=== PATIENT | female | born 1970 | race Caucasian/White ===

== ENCOUNTER 2017-09-10 15:08 | Emergency (ER) | payer SELFPAY ==
[2017-09-10 15:55] LABS: Hematocrit 39.1 % (37.0-47.0); Hemoglobin 12.2 gm/dL (12.5-16.0); Mean Cell Volume 91.8 fl (78-100); Mean Corpuscular Hemoglobin 28.6 pg (27-31); Mean Corpuscular Hgb Conc 31.2 g/dl (32-36); Mean Platelet Volume 9.8 fl (6.0-9.5); Neutrophil # 4.5 K/mm3 (1.3-6.0); Neutrophil % 54.9 % (42-75.0); Platelet Count 308 K/mm3 (150-450); Red Blood Count 4.26 M/mm3 (4.2-5.4); Red Cell Distribution Width 13.2 % (11.5-14.0); White Blood Count 8.2 K/mm3 (4.0-10.5)
--- NOTE | 2017-09-10 16:06 | ERNOTE ---
Abdominal HPI - General Chief Complaint: Abdominal Pain Time Seen by Provider: 09/10/17 15:49 Source: patient Exam Limitations: no limitations - Immun/Allergies/Home Medications Immunizatons: IMMUNIZATION HX Immunizations Up to Date Yes Allergies/Adverse Reactions: Allergies prochlorperazine edisylate [From Compazine] Allergy (Unknown, Verified 09/10/17 15:26) prochlorperazine maleate [From Compazine] Allergy (Unknown, Verified 09/10/17 15 :26) Home Medications: HOME MEDICATIONS Multivit with Calcium,Iron,Min [One Daily Women's] 1 each PO DAILY 03/30/14 [ Last Taken Unknown] - History of Present Illness Narrative: Patient is here as she is concerned about being jaundice. She had accidental tylenol overdose 15 years ago. About a week ago she was started on an antibiotic (bactrim?) for a UTI, last dose yesterday. She also had back pain and as ibuprofen wasn't helping she took some of her grandmothers tramadol (eight doses over the last three days). Her back pain has resolved but she has abdominal discomfort and her abdomen feels bigger, last BM 4-5 days ago. Also her family said that she looked yellow, so she is coming to have her liver evaluated Review of Systems - Review of Systems Constitutional: Present: See HPI, recent illness ENT: Present: nose congestion Respiratory: Absent: shortness of breath, cough Cardiology: Absent: chest pain Gastrointestinal/Abdominal: Present: See HPI, abdominal pain. Absent: nausea Genitourinary: Present: no symptoms reported, other - prior symptoms have resolved Musculoskeletal: Present: See HPI Neurological: Absent: weakness, numbness - Patient's Past Medical History Patient History - Medical: Other Patient History - Cardiac/Respiratory: No pertinent hx Patient History - Cancer: Skin, Surgical Treatment Patient History - Surgical Procedures: , Tubal Ligation Patient History - Other: None LMP (females 10-50): last week - Social History Living Situations: home Abuse History: No History of abuse Psych History: No pertinent hx Smoking Status: Current some day smoker Alcohol Use: rarely Drug Use: none - Immunizations Immunizations Up to Date: Yes Physical Exam - Physical Exam General Appearance: Present: wd/wn, alert, no apparent distress Eye Exam: PERRL: bilateral, Sclera injection: bilateral - minimal Ears, Nose, Throat: Present: nasal congestion, normal pharynx Neck: Present: normal inspection, nontender Respiratory: Present: no respiratory distress, normal breath sounds, lungs clear Cardiovascular/Chest: Present: regular rate, rhythm, no murmur Gastrointestinal/Abdominal: Present: normal bowel sounds, nontender, nondistended, soft Back Exam: Present: normal inspection, no vertebral tenderness Neurological Exam: Present: alert, oriented, normal mood/affect, no motor/ sensory deficits Skin Exam: Present: normal color, warm/dry ED Progress - Results and Orders Patient's Lab Results:: I have reviewed the patient's lab results. - Vital Signs Patient's Vital Signs:: I have reviewed the patient's vital signs. Vital Signs: Vital Signs 09/10/17 09/10/17 15:20 15:47 Temperature 36.7 C Pulse Rate 83 86 Respiratory 15 15 Rate Blood Pressure 105/84 108/86 O2 Sat by Pulse 93 94 Oximetry - Progress/Reassessment Chief Complaint: Abdominal Pain Progress Note-Subjective: 09/10/17 16:40 discussed test results with patient Departure Clinical Impression: Constipation Qualifiers: Constipation type: unspecified constipation type Qualified Code(s): K59.00 - Constipation, unspecified Upper respiratory infection Qualifiers: URI type: unspecified viral URI Qualified Code(s): J06.9 - Acute upper respiratory infection, unspecified - Departure Disposition: Home self-care Condition: Good Instructions: Constipation, Adult, [id number] Referrals: Cher Lin MD [Staff Physician] -
[2017-09-10 16:14] LABS: Albumin * 3.3 gm/dl (3.4-5.0); Anion Gap 10.7 mmol/L (6.8-13.8); BUN/Creatinine Ratio 11.1 (9.0-21.6); Bilirubin, Total 0.2 mg/dL (0.0-1.1); Ca. Corrected For Albumin 8.6 mg/dL (8.4-10.2); Calcium * 8.4 mg/dL (7.9-10.9); Potassium 3.7 mmol/L (3.4-4.6); Total Protein 7.2 gm/dL (6.2-8.2)
[2017-09-10 16:21] LABS: Urine Bilirubin Negative (NEGATIVE); Urine Blood Negative /ul (NEGATIVE); Urine Ketone Negative (NEGATIVE); Urine Protein Negative (NEGATIVE); Urine Specific Gravity 1.015 SP.GR. (1.005-1.010); Urine Urobilinogen Normal (NORMAL)
[2017-09-10 16:28] VITALS: BP 112/83
[2017-09-10 16:48] LABS: Urine Appearance Clear; Urine Bacteria 4+; Urine Color Orange; Urine Nitrite Positive (NEGATIVE); Urine RBC 0-5 /hpf (0-5); Urine Trichomonas Few - 1+
== END 2017-09-10 16:49 | disposition home or self-care (01) ==
LOC: ER 15:08
DX: K59.00 Constipation, unspecified (principal); J06.9 Acute upper respiratory infection, unspecified; Z85.828 Personal history of other malignant neoplasm of skin; F17.200 Nicotine dependence, unspecified, uncomplicated